=== PATIENT | male | born 1960 | race Caucasian/White ===

== ENCOUNTER 2016-11-10 01:27 | Emergency (ER) | payer BC ==
[~2016-11-10] VITALS: Ht 180.3 cm; Wt 113.6 kg
[~2016-11-10 01:27] MED LIST: ADVIL200 MG PO; DEPAKOTE 250MG250 MG PO
[2016-11-10 01:34] VITALS: TEMP 97.8
[2016-11-10] MEDS ORDERED: LIPITOR 10MG10 MG PO (01:38)
[2016-11-10] MEDS ORDERED: MULTI VITAMINS1 TAB PO (01:39)
[2016-11-10] MEDS ORDERED: PRIL40 PO (01:39)
[2016-11-10 02:05] LABS: ADJUSTED CALCIUM 8.9 mg/dL (8.4-10.2); ALANINE AMINOTRANSFERASE 27 U/L (21-72); ALKALINE PHOSPHATASE 78 U/L (50-136); ANION GAP 14 mmol/L (7-16); BILIRUBIN,TOTAL 0.6 mg/dL (0.0-1.0); BLOOD UREA NITROGEN 21 mg/dL (9-20); CALCIUM 8.9 mg/dL (8.4-10.2); CARBON DIOXIDE 25 mmol/L (22-30); CHLORIDE 104 mmol/L (98-107); CREATININE, serum 1.11 mg/dL (0.66-1.25); GLUCOSE 118 mg/dL (74-106); POTASSIUM 3.7 mmol/L (3.4-5.0); SODIUM 142 mmol/L (137-145); TOTAL PROTEIN 6.7 gm/dL (6.4-8.2)
[2016-11-10 02:07] LABS: HEMATOCRIT 42.3 % (42.0-52.0); HEMOGLOBIN 14.2 g/dl (13.5-18.0); MEAN CELL VOLUME 87 fl (80.0-100.0); MEAN CORPUSCULAR HEMOGLOBIN 29 pg (27.0-31.0); MEAN CORPUSCULAR HGB CONC 34 g/dl (33.0-37.0); MEAN PLATELET VOLUME 11.2 fl (7.4-10.4); PLATELET COUNT 221 K/mm3 (130-400); RED BLOOD COUNT 4.88 M/mm3 (4.20-5.60); REDCELL DISTRIBUTION WIDTH-CV 13.7 % (11.5-14.5); WHITE BLOOD COUNT 11.9 K/mm3 (4.8-10.8)
[2016-11-10 02:08] LABS: ADD PATHOLOGY DIFF REVIEW NO
[2016-11-10 02:16] LABS: BAND 1 % (0-10); BASOPHIL 1 % (0-2); NEUTROPHILS 32 % (42.0-75.2); PLATELET ESTIMATE NORMAL (NORMAL); TOTAL CELLS COUNTED 100; TROPONIN-I < 0.012 ng/mL (0.000-0.034)
[2016-11-10 02:22] LABS: B-TYPE NATRIURETIC PEPTIDE 278 pg/mL (0-125)
[2016-11-10] MEDS ORDERED: CARDIZEM SR 60M60 MG PO (02:54)
[2016-11-10] MEDS ORDERED: ELIQUIS 5MG PO (02:54)
[2016-11-10 03:34] VITALS: BP 114/86; PULSE 129
[2016-11-10 04:01] LABS: THYROXINE (T4)-TOTAL 7.6 ug/dL (5.5-11.0)
== END 2016-11-10 04:00 | disposition home or self-care (01) ==
LOC: COL.ER 01:27
PROVIDERS: Emergency Medicine
DX: I48.91 Unspecified atrial fibrillation (principal); E78.00 Pure hypercholesterolemia, unspecified; F17.210 Nicotine dependence, cigarettes, uncomplicated; Z90.89 Acquired absence of other organs
CPT/HCPCS: G0463

== ENCOUNTER 2017-07-14 14:57 | Inpatient (IN) | payer BC ==
[~2017-07-14] VITALS: Ht 182.9 cm; Wt 117.5 kg
[~2017-07-14 14:57] MED LIST changes: +CARDIZEM SR 60M60 MG PO; +ELIQUIS 5MG PO; +LIPITOR 10MG10 MG PO; +MULTI VITAMINS1 TAB PO; +PRIL40 PO
[2017-07-14 15:45] LABS: BASO # 0.1 (0.0-0.2); BASO % 0.5 % (0.0-2.0); EOS # 0.1 (0.0-0.7); EOS % 0.8 % (0-4.0); GRAN # 5.3 (1.4-6.5); GRAN % 48.4 % (42.2-75.2); HEMATOCRIT 41.5 % (42.0-52.0); LYMPH # 4.3 (1.2-3.4); LYMPH % 38.8 % (20.0-51.0); MEAN CELL VOLUME 87 fl (80.0-100.0); MEAN CORPUSCULAR HEMOGLOBIN 29 pg (27.0-31.0); MEAN CORPUSCULAR HGB CONC 34 g/dl (33.0-37.0); MEAN PLATELET VOLUME 11.5 fl (7.4-10.4); MONO # 1.2 (0.1-0.6); PLATELET COUNT 230 K/mm3 (130-400); RED BLOOD COUNT 4.76 M/mm3 (4.20-5.60); REDCELL DISTRIBUTION WIDTH-CV 13.5 % (11.5-14.5)
[2017-07-14 15:49] LABS: ALANINE AMINOTRANSFERASE 53 U/L (21-72); ALBUMIN 4.4 gm/dL (3.5-5.0); ALKALINE PHOSPHATASE 89 U/L (50-136); ANION GAP 9 mmol/L (7-16); AST,SGOT 33 U/L (15-37); BILIRUBIN,TOTAL 0.4 mg/dL (0.0-1.0); BLOOD UREA NITROGEN 22 mg/dL (9-20); CALCIUM 9.4 mg/dL (8.4-10.2); CARBON DIOXIDE 25 mmol/L (22-30); CHLORIDE 105 mmol/L (98-107); GLUCOSE 104 mg/dL (74-106); POTASSIUM 4.2 mmol/L (3.4-5.0); SODIUM 139 mmol/L (137-145); TOTAL PROTEIN 7.2 gm/dL (6.4-8.2)
[2017-07-14 15:51] LABS: INR 1.1 (0.8-3.0); PROTHROMBIN TIME 12.5 SECONDS (9.7-12.8)
[2017-07-14 15:54] LABS: PARTIAL THROMBOPLASTIN TIME 34.4 SECONDS (26.0-37.0)
[2017-07-14 16:01] LABS: TROPONIN-I < 0.012 ng/mL (0.000-0.034)
[2017-07-14] MEDS ORDERED: LASIX 20MG TABL20 MG PO (18:45)
[2017-07-14] MEDS ORDERED: CARDIZEM CD 12120 MG PO (18:45)
[2017-07-14 21:24] VITALS: BP 135/85; PULSE 105
[2017-07-14 21:35] VITALS: BP 105/82; PULSE 135
[2017-07-14 22:07] VITALS: BP 135/85; PULSE 105; TEMP 97.7
[2017-07-14 23:56] VITALS: BP 115/82; PULSE 100; TEMP 98.6
[2017-07-15 00:10] VITALS: BP 115/82; PULSE 120
[2017-07-15 03:56] VITALS: BP 95/79; PULSE 96; TEMP 98.4
[2017-07-15 05:50] LABS: BASO # 0.1 (0.0-0.2); BASO % 0.7 % (0.0-2.0); EOS # 0.2 (0.0-0.7); EOS % 1.3 % (0-4.0); GRAN # 5.1 (1.4-6.5); GRAN % 42.7 % (42.2-75.2); HEMATOCRIT 43.6 % (42.0-52.0); HEMOGLOBIN 14.8 g/dl (13.5-18.0); LYMPH # 5.2 (1.2-3.4); LYMPH % 44.2 % (20.0-51.0); MEAN CELL VOLUME 86 fl (80.0-100.0); MEAN CORPUSCULAR HEMOGLOBIN 29 pg (27.0-31.0); MEAN CORPUSCULAR HGB CONC 34 g/dl (33.0-37.0); MEAN PLATELET VOLUME 11.2 fl (7.4-10.4); MONO # 1.3 (0.1-0.6); MONO % 10.7 % (1.7-9.3); PLATELET COUNT 239 K/mm3 (130-400); RED BLOOD COUNT 5.07 M/mm3 (4.20-5.60); REDCELL DISTRIBUTION WIDTH-CV 13.7 % (11.5-14.5)
[2017-07-15 06:01] LABS: CALCIUM 9.3 mg/dL (8.4-10.2); CREATININE, serum 1.28 mg/dL (0.66-1.25); MAGNESIUM 1.9 mg/dL (1.6-2.3); PHOSPHOROUS 4.6 mg/dL (2.5-4.5); POTASSIUM 3.9 mmol/L (3.4-5.0)
[2017-07-15 08:00] VITALS: BP 115/83; PULSE 98; TEMP 97.9
[2017-07-15 12:00] VITALS: BP 114/89; PULSE 62; TEMP 98.1
== END 2017-07-15 17:45 | disposition home or self-care (01) | DRG 310 ==
LOC: COL.ER 14:57 → ICU 19:56
PROVIDERS: Emergency Medicine; Internal Medicine
PROC: 5A2204Z Restoration of Cardiac Rhythm, Single (ICD-10-PCS; principal; 2017-07-15)
DX: I48.91 Unspecified atrial fibrillation (principal); I48.92 Unspecified atrial flutter; F31.9 Bipolar disorder, unspecified; Z87.891 Personal history of nicotine dependence
CPT/HCPCS: 99239; J1940; J2250; J3010; J7050